=== PATIENT | male | born 1955 | race Caucasian/White ===

== ENCOUNTER 2017-09-21 13:05 | Inpatient (IN) ==
[2017-09-21 13:51] LABS: Eosinophils % 0.5 % (0.00-10.9); Hematocrit 44.7 VOL% (42.0-52.0); Hemoglobin 15.5 GM/DL (14.0-18.0); Lymphocytes % 27.3 % (21.2-54.2); Mean Corpuscular HGB Conc 34.7 GM/DL (32-36); Mean Corpuscular Hemoglobin 32 PG (27-34); Mean Corpuscular Volume 92.5 FL (87-102); Monocytes % 6.5 % (1.7-12.7); Neutrophils % 65.1 % (38.7-73.9); Platelet Count 236 T/CUMM (130-400); Red Blood Count 4.83 MC/CUMM (3.8-5.5); White Blood Count 11.9 T/CUMM (4-12)
[2017-09-21 13:52] LABS: Basophils % 0.3 % (0.0-0.8); Eosinophils # 0.1 10*3/uL (0.0-0.87); Immature Granulocytes % 0.3 %; Immature Granulocytes Absolute 0.04 #; Lymphocytes # 3.3 10*3/uL (1.4-4.0); Monocytes # 0.8 10*3/uL (0.11-0.8); Neutrophils # 7.8 10*3/uL (1.4-7.4)
[2017-09-21 14:09] LABS: Alanine Aminotransferase 23 U/L (16-61); Alkaline Phosphatase 86 U/L (45-117); Aspartate Amino Transferase 9 U/L (0-37); Bilirubin,Total < 0.39 MG/DL (0.2-1.0); Blood Urea Nitrogen 12 MG/DL (7-18); Calcium 9.3 MG/DL (8.5-10.1); Glucose 92 MG/DL (74-106); Osmolality,Calculated 276.5 MOS/KG (273-304); Potassium 4.1 MMOL/L (3.5-5.1); Sodium 139 MMOL/L (136-145); Total Protein 7.8 G/DL (6.4-8.3)
[2017-09-21] MEDS ORDERED: CEFTAROLINE 600 MG in SODIUM CHLORIDE 0.9% 100 ML IV STA (15:38)
[2017-09-21] MEDS ORDERED: ACETAMINOPHEN 325 MG TABLET PO PRN (17:38)
[2017-09-21] MEDS ORDERED: ONDANSETRON 4 MG/2 ML VIAL IV PRN (17:38)
[2017-09-21] MEDS ORDERED: ALBUTEROL/IPRATROPIUM 3 ML NEB RESP TX PRN (17:38)
[2017-09-21] MEDS: MORPHINE 2 MG/1 ML SYRINGE IV PRN (18:31)
[2017-09-21] MEDS: CEFTAROLINE 600 MG in SODIUM CHLORIDE 0.9% 50 ML IV SCH (18:33)
[2017-09-22] MEDS: DEXTROSE 5% NACL 0.45% 1,000 ML IV SCH ×2 (01:05→11:30)
[2017-09-22 03:14] LABS: Basophils % 0.2 % (0.0-0.8); Eosinophils # 0.1 10*3/uL (0.0-0.87); Eosinophils % 1.1 % (0.00-10.9); Hematocrit 39.9 VOL% (42.0-52.0); Hemoglobin 13.7 GM/DL (14.0-18.0); Immature Granulocytes % 0.3 %; Immature Granulocytes Absolute 0.03 #; Lymphocytes # 2.7 10*3/uL (1.4-4.0); Lymphocytes % 26.9 % (21.2-54.2); Mean Corpuscular HGB Conc 34.3 GM/DL (32-36); Mean Corpuscular Hemoglobin 32 PG (27-34); Mean Corpuscular Volume 92.1 FL (87-102); Mean Platelet Volume 10.2 FL (9.6-12.0); Monocytes # 0.8 10*3/uL (0.11-0.8); Monocytes % 7.6 % (1.7-12.7); Neutrophils # 6.3 10*3/uL (1.4-7.4); Neutrophils % 63.9 % (38.7-73.9); Platelet Count 207 T/CUMM (130-400); Red Blood Count 4.33 MC/CUMM (3.8-5.5); Red Cell Distribution Width 13.1 % (9.3-17.3); White Blood Count 9.9 T/CUMM (4-12)
[2017-09-22 03:39] LABS: Calcium 8.9 MG/DL (8.5-10.1); Osmolality,Calculated 283.1 MOS/KG (273-304)
[2017-09-22] MEDS: CEFTAROLINE 600 MG in SODIUM CHLORIDE 0.9% 50 ML IV SCH (05:18)
[2017-09-22] MEDS: MORPHINE 2 MG/1 ML SYRINGE IV PRN (11:31)
[2017-09-22] MEDS: PANTOPRAZOLE 40 MG TABLET PO SCH (11:31)
[2017-09-22] MEDS: PIPERACILLIN/TAZOBACTAM 3,375 MG in SODIUM CHLORIDE 0.9% 100 ML IV SCH ×2 (16:12→23:07)
[2017-09-22] MEDS: VANCOMYCIN INJ 1,250 MG in SODIUM CHLORIDE 0.45% 250 ML IV SCH (20:27)
[2017-09-23] MEDS: VANCOMYCIN INJ 1,250 MG in SODIUM CHLORIDE 0.45% 250 ML IV SCH ×3 (03:00→22:40)
[2017-09-23] MEDS: PIPERACILLIN/TAZOBACTAM 3,375 MG in SODIUM CHLORIDE 0.9% 100 ML IV SCH ×2 (06:17→17:53)
[2017-09-23] MEDS: PANTOPRAZOLE 40 MG TABLET PO SCH (09:05)
[2017-09-24] MEDS: PIPERACILLIN/TAZOBACTAM 3,375 MG in SODIUM CHLORIDE 0.9% 100 ML IV SCH ×3 (03:00→18:48)
[2017-09-24] MEDS: VANCOMYCIN INJ 1,250 MG in SODIUM CHLORIDE 0.45% 250 ML IV SCH ×3 (07:05→22:55)
[2017-09-24] MEDS ORDERED: BUPIVACAINE 0.25% 50 ML VIAL ONE (08:34)
[2017-09-24] MEDS ORDERED: ONDANSETRON 4 MG/2 ML VIAL ONE ×2 (12:03→12:42)
[2017-09-24] MEDS ORDERED: HYDROmorphone 2 MG/1 ML VIAL ONE (12:03)
[2017-09-24] MEDS: HYDROmorphone 2 MG/1 ML VIAL IV PRN ×4 (12:05→12:20)
[2017-09-24] MEDS ORDERED: ONDANSETRON 4 MG/2 ML VIAL IV PRN (12:05)
[2017-09-24] MEDS ORDERED: LACTATED RINGERS 1,000 ML IV SCH (12:30)
[2017-09-24] MEDS ORDERED: SEVOFLURANE 1 UNIT/15 MINUTE INH ONE (12:41)
[2017-09-24] MEDS ORDERED: PROPOFOL 200 MG/20 ML VIAL IV ONE (12:41)
[2017-09-24] MEDS ORDERED: fentaNYL 100 MCG/2 ML VIAL ONE (12:42)
[2017-09-24] MEDS ORDERED: MIDAZOLAM 2 MG/2 ML VIAL ONE (12:42)
[2017-09-24] MEDS: MORPHINE 2 MG/1 ML SYRINGE IV PRN ×2 (15:00→20:17)
[2017-09-24] MEDS: PANTOPRAZOLE 40 MG TABLET PO SCH (16:20)
[2017-09-25] MEDS: PIPERACILLIN/TAZOBACTAM 3,375 MG in SODIUM CHLORIDE 0.9% 100 ML IV SCH ×2 (01:52→10:23)
[2017-09-25] MEDS: VANCOMYCIN INJ 1,250 MG in SODIUM CHLORIDE 0.45% 250 ML IV SCH (06:07)
[2017-09-25 06:56] LABS: Calcium 8.4 MG/DL (8.5-10.1); Osmolality,Calculated 283.8 MOS/KG (273-304); Potassium 3.7 MMOL/L (3.5-5.1)
[2017-09-25] MEDS: MORPHINE 2 MG/1 ML SYRINGE IV PRN (09:07)
[2017-09-25] MEDS: PANTOPRAZOLE 40 MG TABLET PO SCH (09:11)
[2017-09-25 11:23] VITALS: BP 111/65
== END 2017-09-25 13:45 | disposition home or self-care (01) | DRG 475 ==
LOC: N.ED 13:05 → N.EDINP 13:05 → N.3E 17:38
PROVIDERS: ADMIT Surgery; ATTEND Surgery